=== PATIENT | female | born 1980 | race Caucasian/White ===

== ENCOUNTER → 2019-09-23 | Outpatient (CLI) | payer OTHER ==
[~2019-09-23] MED LIST: CLEOCIN HCL150 MG PO; NOHOMEMEDICATIONS; TRAMADOL 50 MG50 MG PO
== END | disposition home or self-care (01) ==
LOC: M.RAD 09-10 11:44
DX: M25.552 Pain in left hip (principal); S73.192A Other sprain of left hip, initial encounter; Z98.890 Other specified postprocedural states; Z79.899 Other long term (current) drug therapy; X58.XXXA Exposure to other specified factors, initial encounter; Y93.89 Activity, other specified; Y92.89 Other specified places as the place of occurrence of the external cause; Y99.8 Other external cause status